=== PATIENT | female | born 1975 | race Caucasian/White ===

== ENCOUNTER → 2018-07-31 | Outpatient (CLI) | payer OTHER ==
[~2018-07-31] MED LIST: ACE3 PO; BIRTH CONTROL PILL; BUTA1CAP4 PO; CEP500 PO; HYD10 PO; IBU800 PO; IBUP-56 PO; KET10 PO; LEVO137T22 PO; LIOT25TA11 PO; MEPE50TA29 PO; MET500 PO; METF-452 PO; METR-1 PO; MONT10TA PO; PER PO; PREN-85 PO; PROG100C PO; SERT-177 PO; VALA100062 PO
--- NOTE | 2018-08-03 10:43 | RADIOLOGY IMAGING REPORT ---
FACILITY: [facility] PATIENT NAME: TUSHAR LY : [id number] MR: [id number] V: [id number] EXAM DATE: [id number] ORDERING PHYSICIAN: CHAIM SHULTZ TECHNOLOGIST: Laine Aceves PROCEDURE:BILATERAL DIGITAL SCREENING MAMMOGRAM WITH CAD ASSISTED INTERPRETATION & 3D TOMOSYNTHESIS COMPARISON:Prior mammograms 07/01/17, 11/26/16, 11/14/16. INDICATIONS:SCREENING FINDINGS: There are scattered areas of fibroglandular density throughout the breasts. The parenchymal pattern has remained stable allowing for difference in mammographic technique & patient positioning. The asymmetric density in the upper outer quadrant of the Right breast with previous biopsy clips has remained stable. DIAGNOSTIC CATEGORY 2--BENIGN FINDING. RECOMMENDATIONS: ROUTINE MAMMOGRAM AND CLINICAL EVALUATION. IMPRESSION: BIRADS 2: Benign finding. No significant abnormality identified at this time. Dictated by: Keila Vallecillo M.D. on 07/31/2018 at 9:38 Transcribed by: JAISON on 07/31/2018 at 9:58 Approved by: Keila Vallecillo M.D. on 08/03/2018 at 10:42 [facility]
== END ==
LOC: MAMO 02:25
PROVIDERS: ATTEND Obstetrics & Gynecology
DX: Z12.31 Encounter for screening mammogram for malignant neoplasm of breast (principal); Z80.3 Family history of malignant neoplasm of breast
CPT/HCPCS: 77063; 77067